=== PATIENT | male | born 1970 | race Caucasian/White ===

== ENCOUNTER → 2018-11-14 | Outpatient (REF) | payer OTHER, MEDICARE ==
[~2018-11-14] MED LIST: ASPI81TA85 PO; AURY1TAB; D31000CA4 PO; DILT1CAP46; FURO40TA2; KLOR20TA42; LANT1000; LEVO75TA4; RENATAB5
== END ==
LOC: M SFHCPLAZ 17:17
PROVIDERS: ATTEND Dermatology
DX: L28.0 Lichen simplex chronicus (principal)

== ENCOUNTER 2018-11-18 10:54 | Day surgery (SDC) | payer OTHER, MEDICARE ==
[~2018-11-18] VITALS: Ht 190.5 cm; Wt 155.1 kg
[~2018-11-18 10:54] MED LIST changes: +NS 1,000 ML IV ONE
[2018-11-18] MEDS ORDERED: PROPOFOL 200 MG/20 ML VIAL As Ordered ONE (12:16)
[2018-11-18] MEDS ORDERED: LIDOCAINE 2% INJ 100 MG/5 ML SDV (FOR ANES.) As Ordered ONE (12:16)
--- NOTE | 2018-11-18 12:35 | ROOR ---
Patient Name: Fabrice Muniz Procedure Date: 11/18/2018 11:45 AM Date of : 1970 Age: 48 Room: [facility] Gender: Male Note Status: Finalized Procedure: Upper GI endoscopy Indications: Heartburn, Suspected gastro-esophageal reflux disease Providers: Henok Blank MD Referring MD: JIGAR PUENTE MD Requesting Provider: Medicines: Monitored Anesthesia Care Complications: No immediate complications. Procedure: Pre-Anesthesia Assessment: - Prior to the procedure, a History and Physical was performed, and patient medications and allergies were reviewed. The patient is competent. The risks and benefits of the procedure and the sedation options and risks were discussed with the patient. All questions were answered and informed consent was obtained. Patient identification and proposed procedure were verified by the physician, the nurse and the anesthesiologist in the procedure room. Mental Status Examination: alert and oriented. Airway Examination: normal oropharyngeal airway and neck mobility. Respiratory Examination: clear to auscultation. CV Examination: normal. Prophylactic Antibiotics: The patient does not require prophylactic antibiotics. Prior Anticoagulants: The patient has taken no previous anticoagulant or antiplatelet agents. ASA Grade Assessment: III - A patient with severe systemic disease. After reviewing the risks and benefits, the patient was deemed in satisfactory condition to undergo the procedure. The anesthesia plan was to use monitored anesthesia care (MAC). Immediately prior to administration of medications, the patient was re-assessed for adequacy to receive sedatives. The heart rate, respiratory rate, oxygen saturations, blood pressure, adequacy of pulmonary ventilation, and response to care were monitored throughout the procedure. The physical status of the patient was re-assessed after the procedure. The Endoscope was introduced through the mouth, and advanced to the second part of duodenum. The upper GI endoscopy was accomplished without difficulty. The patient tolerated the procedure well. Findings: The Z-line was irregular and was found 42 cm from the incisors. LA Grade B (one or more mucosal breaks greater than 5 mm, not extending between the tops of two mucosal folds) esophagitis with no bleeding was found in the distal esophagus. Biopsies were taken with a cold forceps for histology. Verification of patient identification for the specimen was done by the physician and nurse using the patient's name, date and medical record number. Estimated blood loss was minimal. Patchy mild inflammation characterized by erythema, friability and granularity was found in the gastric body and in the gastric antrum. Biopsies were taken with a cold forceps for Helicobacter pylori testing. The duodenal bulb and second portion of the duodenum were normal. Impression: - Z-line irregular, 42 cm from the incisors. - LA Grade B reflux esophagitis. Rule out Denny's esophagus. Biopsied. - Gastritis. Biopsied. - Normal duodenal bulb and second portion of the duodenum. Recommendation: - Patient has a contact number available for emergencies. The signs and symptoms of potential delayed complications were discussed with the patient. Return to normal activities tomorrow. Written discharge instructions were provided to the patient. - Low sodium diet. - Continue present medications. - Follow an antireflux regimen. - Await pathology results. - Repeat upper endoscopy in 1 year depending on the symptoms and clinical response. - Return to GI clinic in 1 year. - Based on the biopsy results you will receive a phone call from GI clinic in 2-3 weeks to review the pathology results AND/OR your results will be faxed to your Primary care physician. - Return to primary care physician. Henok Blank MD Henok Blnak MD 11/18/2018 12:35:07 PM Electronically signed by Henok Blank MD Number of Addenda: 0 Note Initiated On: 11/18/2018 11:45 AM Estimated Blood Loss: Estimated blood loss was minimal.
--- NOTE | 2018-11-18 12:38 | ROOR ---
Patient Name: Fabrice Muniz Procedure Date: 11/18/2018 11:46 AM Date of : 1970 Age: 48 Room: [facility] Gender: Male Note Status: Finalized Procedure: Colonoscopy Indications: Screening for colorectal malignant neoplasm Providers: Henok Blank MD Referring MD: JIGAR PUENTE MD Requesting Provider: Medicines: Monitored Anesthesia Care Complications: No immediate complications. Procedure: Pre-Anesthesia Assessment: - Prior to the procedure, a History and Physical was performed, and patient medications and allergies were reviewed. The patient is competent. The risks and benefits of the procedure and the sedation options and risks were discussed with the patient. All questions were answered and informed consent was obtained. Patient identification and proposed procedure were verified by the physician, the nurse and the anesthesiologist in the procedure room. Mental Status Examination: alert and oriented. Airway Examination: normal oropharyngeal airway and neck mobility. Respiratory Examination: clear to auscultation. CV Examination: normal. Prophylactic Antibiotics: The patient does not require prophylactic antibiotics. Prior Anticoagulants: The patient has taken no previous anticoagulant or antiplatelet agents. ASA Grade Assessment: III - A patient with severe systemic disease. After reviewing the risks and benefits, the patient was deemed in satisfactory condition to undergo the procedure. The anesthesia plan was to use monitored anesthesia care (MAC). Immediately prior to administration of medications, the patient was re-assessed for adequacy to receive sedatives. The heart rate, respiratory rate, oxygen saturations, blood pressure, adequacy of pulmonary ventilation, and response to care were monitored throughout the procedure. The physical status of the patient was re-assessed after the procedure. The Colonoscope was introduced through the anus and advanced to the terminal ileum, with identification of the appendiceal orifice and IC valve. The colonoscopy was performed without difficulty. The patient tolerated the procedure well. The quality of the bowel preparation was [Prep Quality]. [Anatomical Structures]. Findings: The perianal and digital rectal examinations were normal. The terminal ileum appeared normal. Eight sessile polyps were found from the ascending colon to the transverse colon. The polyps were 6 to 10 mm in size. These polyps were removed with a cold snare. Resection and retrieval were complete. Verification of patient identification for the specimen was done by the physician and nurse using the patient's name, date and medical record number. Estimated blood loss was minimal. Non-bleeding external and internal hemorrhoids were found during retroflexion. The hemorrhoids were small. Impression: - The examined portion of the ileum was normal. - Eight 6 to 10 mm polyps from ascending colon to transverse colon, removed with a cold snare. Resected and retrieved. - Non-bleeding external and internal hemorrhoids. Recommendation: - Patient has a contact number available for emergencies. The signs and symptoms of potential delayed complications were discussed with the patient. Return to normal activities tomorrow. Written discharge instructions were provided to the patient. - High fiber diet and low sodium diet. - Continue present medications. - Await pathology results. - Repeat colonoscopy in 3 years for surveillance based on pathology results. - Based on the biopsy results you will receive a phone call from GI clinic in 2-3 weeks to review the pathology results AND/OR your results will be faxed to your Primary care physician. - Return to primary care physician. Henok Blank MD Henok Blank MD 11/18/2018 12:38:06 PM Electronically signed by Henok Blank MD Number of Addenda: 0 Note Initiated On: 11/18/2018 11:46 AM Estimated Blood Loss: Estimated blood loss was minimal.
[2018-11-18 12:58] VITALS: BP 120/88
== END 2018-11-18 13:00 | disposition home or self-care (01) ==
LOC: M OPP 10:54
PROVIDERS: ATTEND Internal Medicine Gastroenterology
DX: D12.2 Benign neoplasm of ascending colon (principal); K64.8 Other hemorrhoids; K22.8 Other specified diseases of esophagus; K21.0 Gastro-esophageal reflux disease with esophagitis; K29.70 Gastritis, unspecified, without bleeding; R12 Heartburn; Z12.11 Encounter for screening for malignant neoplasm of colon

== ENCOUNTER → 2018-11-18 | Outpatient (CLI) | payer OTHER, MEDICARE ==
[2018-11-18 11:52] LABS: BASO % 0.9 % (0.0-1.0); EOS # 0.1 10^3/uL (0.0-0.50); EOS % 1.7 % (0.0-3.0); HEMATOCRIT 51.5 % (42.0-52.0); HEMOGLOBIN 16.1 g/dl (13.5-17.5); LYMPH # 0.8 10^3/uL (1.5-4.5); LYMPH % 17.2 % (24.0-44.0); MEAN CORPUSCULAR HEMOGLOBIN 28.7 pg (27.0-33.0); MEAN CORPUSCULAR HGB CONC 31.3 g/dl (32.0-36.5); MEAN CORPUSCULAR VOLUME 91.8 fl (80.0-96.0); MONO # 0.5 10^3/uL (0.0-0.8); MONO % 11.4 % (0.0-5.0); NEUTROPHILS # 3.2 10^3/uL (1.8-7.7); NEUTROPHILS % 68.6 % (36.0-66.0); PLATELET COUNT, AUTOMATED 200 10^3/uL (150-450); RED BLOOD COUNT 5.61 10^6/uL (4.30-6.10); WHITE BLOOD COUNT 4.7 10^3/uL (4.0-10.0)
[2018-11-18 13:44] LABS: CALCIUM LEVEL 9.7 MG/DL (8.5-10.1); CREATININE FOR GFR 9.58 MG/DL (0.70-1.30); GLOMERULAR FILTRATION RATE 6.2 (>56); POTASSIUM SERUM 4.6 MEQ/L (3.5-5.1)
== END ==
LOC: M LAB 10:36
PROVIDERS: ATTEND Internal Medicine Gastroenterology
DX: N18.6 End stage renal disease (principal)

== ENCOUNTER → 2020-08-24 | Outpatient (CLI) | payer OTHER ==
[~2020-08-24] MED LIST changes: -ASPI81TA85 PO; +ASPI81TA86 PO; +ISOVUE-370 76% 100ML VIAL As Ordered ONE; -NS 1,000 ML IV ONE
--- NOTE | 2020-08-24 18:55 | REP ---
INDICATION: NEOPLASM OF TRACHEA/BRONCHUS/LUNG. COMPARISON: Comparison chest x-ray [facility] August 16, 2020.. TECHNIQUE: 75 mL of intravenous Isovue 370 is administered and helical scanning is acquired. 3 mm axial images re-formatted. Coronal and sagittal MPR and coronal MIP images are provided. FINDINGS: Digital lawn specialist radiograph demonstrates marked elevation of the right hemidiaphragm as seen on the chest x-ray. Study confirms the presence of a spiculated cavitary mass in the right upper lobe. This measures 3.0 x 4.1 x 2.0 cm. It abuts the posterolateral pleural surface and a portion of the major fissure. Primary bronchogenic malignancy must be suspected. There is no visible hilar or mediastinal adenopathy or mass lesion. No other pulmonary mass or nodule is appreciated. There is discoid atelectasis in the right lower lobe above the elevated right hemidiaphragm. There is good opacification of the pulmonary arterial tree and the thoracic aorta. No vascular abnormality is observed. Findings consistent with adult polycystic kidney disease with innumerable large hepatic cysts and bilateral upper pole renal cyst seen at the bottom of the imaging field of view. No pancreatic cysts are appreciated. The pancreatic head is not included in the field of view. The adrenal glands appear normal. Spleen is unremarkable. 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 No bony destructive lesion is appreciated. IMPRESSION: Spiculated 4.0 cm cavitary mass right upper lobe most compatible with primary bronchogenic malignancy. No evidence of hilar or mediastinal adenopathy. Normal adrenal glands. PET-CT and histologic sampling should be considered. <Electronically signed by Martín Richards > 08/24/20 [id number]
== END ==
LOC: M RAD 17:02
PROVIDERS: ATTEND Internal Medicine Nephrology
DX: D38.1 Neoplasm of uncertain behavior of trachea, bronchus and lung (principal)
CPT/HCPCS: 71260; Q9967